=== PATIENT | male | born 1990 | race Caucasian/White ===

== ENCOUNTER 2017-01-01 16:53 | Emergency (ER) | payer OTHER ==
[~2017-01-01] VITALS: Ht 172.7 cm; Wt 68.2 kg
[~2017-01-01 16:53] MED LIST: BACTRIM DS 8001 TAB PO; CEPHALEXIN500 M1 PO; CIPRO 500MG TA500 MG PO; FLOMAX 0.40.4 MG/CAP PO; LOTRISONE 0.5 M1 CRE TP; MOTRIN 800800 MG/TAB PO; NO HOME MEDICATIONS; NORCO 325 MG-51 TAB PO; PRIL40 PO; SEPTRA DS 8001 TAB PO; TYLENOL EXTRA500 M1 PO; ZOFRAN 4MG T4 MG/TAB PO
[2017-01-01 17:04] VITALS: BP 131/79; TEMP 98.5
[2017-01-01] MEDS ORDERED: ZITHROMAX 250M250 MG PO (17:54)
[2017-01-01 18:09] VITALS: PULSE 82
== END 2017-01-01 18:09 | disposition home or self-care (01) ==
LOC: COL.ER 16:53
DX: J20.9 Acute bronchitis, unspecified (principal)

== ENCOUNTER 2017-03-26 16:55 | Emergency (ER) | payer OTHER ==
[~2017-03-26] VITALS: Ht 172.7 cm; Wt 68.2 kg
[~2017-03-26 16:55] MED LIST changes: +ZITHROMAX 250M250 MG PO
[2017-03-26 17:02] VITALS: BP 127/75; PULSE 68; TEMP 98.2
[2017-03-26] MEDS ORDERED: AMOXICILLIN 50500 MG PO (17:35)
== END 2017-03-26 17:47 | disposition home or self-care (01) ==
LOC: COL.ER 16:55
DX: H66.41 Suppurative otitis media, unspecified, right ear (principal)

== ENCOUNTER 2017-12-08 08:43 | Emergency (ER) | payer OTHER ==
[~2017-12-08] VITALS: Ht 172.7 cm; Wt 70.5 kg
[~2017-12-08 08:43] MED LIST changes: +AMOXICILLIN 50500 MG PO
[2017-12-08 08:50] VITALS: TEMP 98.3
[2017-12-08 10:09] LABS: BASO # 0.1 (0.0-0.2); BASO % 0.5 % (0.0-2.0); EOS # 0.3 (0.0-0.7); EOS % 3.2 % (0-4.0); GRAN # 5.2 (1.4-6.5); GRAN % 54.3 % (42.2-75.2); HEMATOCRIT 44.9 % (42.0-52.0); HEMOGLOBIN 15.4 g/dl (13.5-18.0); LYMPH # 3.2 (1.2-3.4); LYMPH % 33.7 % (20.0-51.0); MEAN CELL VOLUME 91 fl (80.0-100.0); MEAN CORPUSCULAR HEMOGLOBIN 31 pg (27.0-31.0); MEAN CORPUSCULAR HGB CONC 34 g/dl (33.0-37.0); MEAN PLATELET VOLUME 10.4 fl (7.4-10.4); MONO # 0.7 (0.1-0.6); MONO % 7.7 % (1.7-9.3); PLATELET COUNT 255 K/mm3 (130-400); RED BLOOD COUNT 4.94 M/mm3 (4.20-5.60); REDCELL DISTRIBUTION WIDTH-CV 12.6 % (11.5-14.5)
[2017-12-08 10:23] LABS: ALANINE AMINOTRANSFERASE 66 U/L (21-72); ALBUMIN 5.2 gm/dL (3.5-5.0); ALKALINE PHOSPHATASE 86 U/L (50-136); ANION GAP 12 mmol/L (7-16); AST,SGOT 30 U/L (15-37); BILIRUBIN,TOTAL 1.2 mg/dL (0.0-1.0); BLOOD UREA NITROGEN 21 mg/dL (9-20); CARBON DIOXIDE 27 mmol/L (22-30); CHLORIDE 104 mmol/L (98-107); CREATININE, serum 0.81 mg/dL (0.66-1.25); GLUCOSE 101 mg/dL (74-106); POTASSIUM 3.8 mmol/L (3.4-5.0); SODIUM 143 mmol/L (137-145); TOTAL PROTEIN 8.6 gm/dL (6.4-8.2)
[2017-12-08 10:35] LABS: TROPONIN-I < 0.012 ng/mL (0.000-0.034)
[2017-12-08 12:01] VITALS: BP 120/78; PULSE 78
== END 2017-12-08 12:02 | disposition home or self-care (01) ==
LOC: COL.ER 08:43
PROVIDERS: Nurse Practitioner
DX: R07.89 Other chest pain (principal); Z98.890 Other specified postprocedural states
CPT/HCPCS: J1885

== ENCOUNTER 2017-12-21 18:43 | Emergency (ER) | payer OTHER ==
[~2017-12-21] VITALS: Ht 172.7 cm; Wt 68.2 kg
[2017-12-21 18:50] VITALS: TEMP 98.9
[2017-12-21 19:48] LABS: INFLUENZA A POSITIVE; INFLUENZA B NEGATIVE
[2017-12-21 20:21] VITALS: BP 109/73; PULSE 89
== END 2017-12-21 20:23 | disposition home or self-care (01) ==
LOC: COL.ER 18:43
PROVIDERS: Physician Assistant
DX: J10.1 Influenza due to other identified influenza virus with other respiratory manifestations (principal); G43.909 Migraine, unspecified, not intractable, without status migrainosus
CPT/HCPCS: J1885